=== PATIENT | female | born 1965 | race Hispanic/Latino ===

== ENCOUNTER 2017-12-01 16:43 | Emergency (ER) | payer OTHER, BC ==
[2017-12-01 16:59] VITALS: BP 121/79; PULSE 85; RESP 16; TEMP 97.6; O2SAT 98
--- NOTE | 2017-12-01 17:27 | ED PDOC ---
HPI: General Adult Time Seen by Provider: 12/01/17 17:14 Chief Complaint (Nursing): Hip Pain Chief Complaint (Provider): back and abd pain History Per: Patient History/Exam Limitations: no limitations Onset/Duration Of Symptoms: Days (1 week) Additional Complaint(s): Pt. with left lower back. Ongoing for 1 week. For 2 days with abd pain left lower. Constant. No dysuria, weakness, headaches, dizziness, weakness, nausea , vomit, diarrhea. Pt. seen by pcp and had back x-ray with no acute findings. Saw Dr. Alcala today and sent to get US of ovaries. Did not take any meds for pain. Past Medical History Reviewed: Nursing Documentation, Vital Signs Vital Signs: Last Vital Signs Temp 97.6 F 12/01/17 16:59 Pulse 85 12/01/17 16:59 Resp 16 12/01/17 16:59 BP 121/79 12/01/17 16:59 Pulse Ox 98 12/01/17 17:27 - Medical History PMH: No Chronic Diseases - Surgical History Surgical History: No Surg Hx - Family History Family History: States: Unknown Family Hx - Living Arrangements Living Arrangements: With Family - Social History Current smoker - smoking cessation education provided: No Alcohol: None Drugs: Denies - Allergies Allergies/Adverse Reactions: Allergies Allergy/AdvReac Type Severity Reaction Status Date / Time No Known Allergies Allergy Verified 02/27/15 18:17 Review of Systems ROS Statement: Except As Marked, All Systems Reviewed And Found Negative Gastrointestinal: Positive for: Abdominal Pain Musculoskeletal: Positive for: Back Pain Physical Exam - Reviewed Nursing Documentation Reviewed: Yes Vital Signs Reviewed: Yes - Physical Exam Appears: Positive for: Non-toxic, No Acute Distress Head Exam: Positive for: ATRAUMATIC, NORMAL INSPECTION, NORMOCEPHALIC Skin: Positive for: Normal Color, Warm, DRY Eye Exam: Positive for: EOMI, Normal appearance, PERRL ENT: Positive for: Normal ENT Inspection Neck: Positive for: Normal, Painless ROM Cardiovascular/Chest: Positive for: Regular Rate, Rhythm Respiratory: Positive for: CNT, Normal Breath Sounds Gastrointestinal/Abdominal: Positive for: Bowel Sounds, Soft, Tenderness (LLQ) Back: Positive for: Normal Inspection. Negative for: L CVA Tenderness, R CVA Tenderness Extremity: Positive for: Normal ROM Neurologic/Psych: Positive for: Alert, Oriented - Laboratory Results Result Diagrams: 12/01/17 17:55 - ECG O2 Sat by Pulse Oximetry: 98 - Progress ED Course And Treament: 1840: Dr. Valenzuela to take over care. Fu on CT and labs. Disposition - Clinical Impression Clinical Impression: Abdominal pain - Patient ED Disposition Is Patient to be Admitted: Transfer of Care - Disposition Disposition Time: 18:41 Condition: STABLE Patient Signed Over To: Drew Valenzuela
[2017-12-01] MEDS: Lactated Ringer's 1,000 ML IV SCH ×2 (17:39→17:41)
[2017-12-01 18:13] LABS: BASO % 0.3 % (0.0-2.0); EOS # 0.4 K/uL (0.0-0.7); EOS % 5.6 % (0.0-4.0); HEMOGLOBIN 12.8 g/dL (12.0-16.0); LYMPH # 2.1 K/uL (1.0-4.3); LYMPH % 29.4 % (20.0-40.0); MEAN CELL VOLUME 86.1 fl (81.0-99.0); MEAN CORPUSCULAR HGB CONC 32.5 g/dL (33.0-37.0); MEAN PLATELET VOLUME 8.4 fl (7.2-11.7); MONO # 0.4 K/uL (0.0-0.8); MONO % 5.1 % (0.0-10.0); NEUT # 4.2 K/uL (1.8-7.0); NEUT % 59.6 % (50.0-75.0); NRBC % 0.1 % (0.0-0.0); RBC 4.56 Mil/uL (3.80-5.20); RED CELL DISTRIBUTION WIDTH 13.7 % (11.5-14.5); WHITE BLOOD COUNT 7.1 K/uL (4.8-10.8)
[2017-12-01] MEDS ORDERED: Iohexol 240 (50 ml) PO ONE (18:25)
--- NOTE | 2017-12-01 18:32 | US ---
HISTORY: abd pain COMPARISON: None available. TECHNIQUE: Transvaginal pelvic ultrasound FINDINGS: Examination limited by bowel loops. UTERUS: Measures 6.9 x 2.6 x 3.5 cm. Anteverted. ENDOMETRIUM: Measures 4 mm in diameter. CERVIX: No cervical abnormality identified. RIGHT OVARY: Measures 1.5 x 1.0 x 1.0 cm. Blood flow is demonstrated. LEFT OVARY: Measures 1.6 x 1.3 x 1.5 cm. Blood flow is demonstrated. FREE FLUID: No significant free fluid noted. OTHER FINDINGS: None. IMPRESSION: No acute findings identified.
[2017-12-01 18:36] LABS: ALB/GLOB RATIO 1.3 (1.0-2.1); ALBUMIN 4.5 g/dL (3.5-5.0); ALT/SGPT 28 U/L (9-52); AST/SGOT 33 U/L (14-36); BLOOD UREA NITROGEN 24 mg/dl (7-17); CALCIUM 9.5 mg/dL (8.4-10.2); GFR AFRICAN-AMERICAN > 60; GFR NON-AFRICAN AMERICAN > 60
== END 2017-12-01 19:17 | disposition left against medical advice (07) ==
LOC: H.ER 16:43
DX: R10.9 Unspecified abdominal pain (principal); M54.9 Dorsalgia, unspecified